=== PATIENT | female | born 1995 | race Caucasian/White ===

== ENCOUNTER 2019-07-27 07:55 | Day surgery (SDC) | payer BC, OTHER ==
[~2019-07-27 07:55] MED LIST: Lactated Ringers 1,000 ML IV SCH
[2019-07-27] MEDS ORDERED: Lidocaine 2% 5 ML SDV ONE (08:50)
--- NOTE | 2019-07-27 09:02 | PCM.PREANE ---
Preanesthetic Assessment - Anesthesia/Transfusion/Family Hx Anesthesia History: Prior Anesthesia Without Reaction Family History of Anesthesia Reaction: No Transfusion History: No Prior Transfusion(s) Intubation History: Unknown - Review of Systems General: No Symptoms Pulmonary: No Symptoms Cardiovascular: No Symptoms Gastrointestinal: No Symptoms Neurological: No Symptoms Other: Reports: None - Physical Assessment Height: 5 ft 8 in Weight: 114.759 kg ASA Class: 2 Mental Status: Alert & Oriented x3 Airway Class: Mallampati = 2 Dentition: Reports: Normal Dentition Thyro-Mental Finger Breadths: 3 Mouth Opening Finger Breadths: 3 ROM/Head Extension: Full Lungs: Clear to Auscultation, Normal Respiratory Effort Cardiovascular: Regular Rate, Regular Rhythm - Lab Values: Laboratory Last Values Urine HCG, Qual NEGATIVE (NEGATIVE) 07/27/19 08:18 - Allergies Allergies/Adverse Reactions: Allergies Allergy/AdvReac Type Severity Reaction Status Date / Time No Known Allergies Allergy Verified 07/26/19 12:33 - Blood Blood Available: No - Anesthesia Plan Pre-Op Medication Ordered: None - Acknowledgements Anesthesia Type Planned: General Anesthesia Pt an Appropriate Candidate for the Planned Anesthesia: Yes Alternatives and Risks of Anesthesia Discussed w Pt/Guardian: Yes Pt/Guardian Understands and Agrees with Anesthesia Plan: Yes PreAnesthesia Questionnaire HEENT History: Reports: None Cardiovascular History: Reports: None Respiratory History: Reports: None Gastrointestinal History: Reports: GERD Genitourinary History: Reports: None 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: Musculoskeletal History: Reports: None Neurological History: Reports: None Psychiatric History: Reports: None Endocrine/Metabolic History: Reports: Obesity/BMI 30+ (BMI 38.5) Hematologic History: Reports: None Immunologic History: Reports: None Oncologic (Cancer) History: Reports: None Dermatologic History: Reports: None - Infectious Disease History Infectious Disease History: Reports: None - Past Surgical History Head Surgeries/Procedures: Reports: None HEENT Surgical History: Reports: Tonsillectomy - SUBSTANCE USE Smoking Status *Q: Current Every Day Smoker (1 ppd) Tobacco Use Within Last Twelve Months: Cigarettes Recreational Drug Use History: No - HOME MEDS Home Medications: Home Meds Clindamycin HCl 150 mg PO ASDIRECTED 07/26/19 [History] Ibuprofen 600 mg PO ASDIRECTED PRN 07/26/19 [History] Sulfamethoxazole/Trimethoprim [Sulfamethoxazole-Tmp Ds Tablet] 1 tab PO ASDIRECTED 07/26/19 [History] - CURRENT (IN HOUSE) MEDS Current Meds: Current Medications Lactated Ringer's (Ringers, Lactated) 1,000 mls @ 125 mls/hr IV ASDIRECTED SP Discontinued Medications Lidocaine (Xylocaine-Mpf 2%) Confirm Administered Dose 5 ml .ROUTE .STK-MED ONE Stop: 07/27/19 08:51
[2019-07-27] MEDS ORDERED: ceFAZolin 1 GM Vial ONE (09:15)
[2019-07-27] MEDS ORDERED: Bupivacaine 0.5% 10 ML SDV ONE (09:16)
[2019-07-27] MEDS ORDERED: Propofol 200 MG/20 ML SDV ONE (10:15)
[2019-07-27] MEDS ORDERED: Midazolam 1 MG/ML 2 ML SDV ONE (10:15)
[2019-07-27] MEDS ORDERED: fentaNYL 100 MCG/2 ML SDV ONE ×2 (10:15→10:50)
[2019-07-27] MEDS ORDERED: Ondansetron 4 MG/2 ML SDV ONE (10:48)
[2019-07-27] MEDS ORDERED: Ketorolac 30 MG/ML SDV ONE (10:48)
[2019-07-27] MEDS ORDERED: traMADol 50 MG Tab PO PRN (11:46)
[2019-07-27 11:48] VITALS: BP 116/69; PULSE 75
--- NOTE | 2019-07-27 11:49 | PCM.OPNOTE ---
- General Post-Op/Procedure Note Date of Surgery/Procedure: 07/27/19 Operative Procedure(s): Incision and drainage right breast abscess Pre Op Diagnosis: Right breast abscess Post-Op Diagnosis: Same Anesthesia Technique: General LMA (ASA II) Primary Surgeon: Rajiv Cristina Fluid Replacement, Intraop: 1,000 EBL in mLs: 10 Condition: Good Free Text/Narrative:: Intake & Output 07/26/19 07/27/19 07/27/19 19:59 03:59 11:59 Intake Total 1500 Balance 1500 DICTATION 994540 CPT CODE 15858
[2019-07-27] MEDS ORDERED: Lactated Ringers 1,000 ML IV SCH (12:00)
--- NOTE | 2019-07-27 12:06 | PCM.POSTAN ---
POST ANESTHESIA ASSESSMENT - MENTAL STATUS Mental Status: Alert, Oriented - VITAL SIGNS Vital Signs: Last Vital Signs Temp 36.8 C 07/27/19 11:43 Pulse 75 07/27/19 11:43 Resp 14 07/27/19 11:43 BP 116/69 07/27/19 11:43 Pulse Ox 98 07/27/19 11:43 - RESPIRATORY Respiratory Status: Respiratory Rate WNL, Airway Patent, O2 Saturation Stable - CARDIOVASCULAR CV Status: Pulse Rate WNL, Blood Pressure Stable - GASTROINTESTINAL GI Status: No Symptoms - PAIN Pain Score: 0 - POST OP HYDRATION Hydration Status: Adequate & Stable - OBSERVATIONS Free Text/Narrative:: No anesthesia problems
--- NOTE | 2019-07-27 12:09 | PCM48HPAN ---
Post Anesthesia Note - EVALUATION WITHIN 48HRS OF ANESTHETIC Vital Signs in Normal Range: Yes Patient Participated in Evaluation: Yes Respiratory Function Stable: Yes Airway Patent: Yes Cardiovascular Function Stable: Yes Hydration Status Stable: Yes Pain Control Satisfactory: Yes Nausea and Vomiting Control Satisfactory: Yes Mental Status Recovered: Yes Vital Signs: Last Vital Signs Temp 36.8 C 07/27/19 11:43 Pulse 75 07/27/19 11:43 Resp 14 07/27/19 11:43 BP 116/69 07/27/19 11:43 Pulse Ox 98 07/27/19 11:43 - COMMENTS/OBSERVATIONS Free Text/Narrative:: No anesthesia problems
--- NOTE | 2019-07-30 11:45 | OR ---
RSURGEON: Rajiv Cristina M.D. DATE OF PROCEDURE: 07/27/2019 OPERATION PERFORMED: Incision and drainage of right breast abscess. PRIMARY SURGEON: Rajiv Cristina MD ANESTHESIA: General LMA. ASA CLASSIFICATION: II. PREOPERATIVE DIAGNOSIS: Right breast abscess. POSTOPERATIVE DIAGNOSIS: Right breast abscess. ESTIMATED BLOOD LOSS: 10 mL. INTRAOPERATIVE FLUID REPLACEMENT: 1000 mL of crystalloid. DESCRIPTION OF PROCEDURE: The patient was taken to the operating room and placed on the operating table in the supine position. Time-out was called for appropriate identification of the patient and procedure. Following satisfactory attainment of general anesthesia and placement of an LMA, the right breast was prepped with DuraPrep solution. Sterile drapes were applied. A skin incision was made directly over the abscess cavity at the 12 o'clock position. The incision was deepened into the abscess cavity and there was approximately 30 to 40 mL of very thick purulent foul- smelling material. Aerobic and anaerobic cultures were obtained. The wound was then copiously irrigated out with a 1% Ancef solution and all fluid was aspirated. Hemostasis was obtained with the use of electrocautery. Once the wound had been irrigated, a 3/4-inch [place] drain was brought to the operating table. This was placed into the defect and secured with interrupted 2-0 nylon sutures. The breast was then dressed with fluffs and an ABD and taped in place with Medipore tape. It should be noted that digital exploration was aggressively carried out and all loculations were broken up prior to irrigating the wound. The patient tolerated the procedure well. Following emergence from anesthesia and extubation, she was taken to recovery room in stable condition. JEF / SUPRIYA /[id number]
== END 2019-07-27 12:20 | disposition home or self-care (01) ==
LOC: MW.SDS 07:55
PROVIDERS: ATTEND Surgery
DX: N61.1 Abscess of the breast and nipple (principal); F17.200 Nicotine dependence, unspecified, uncomplicated
CPT/HCPCS: 19020; 81025; 87070; 87075; 87077; 87186; 87205; J0690; J1885; J2001; J2250; J2405; J2704; J3010; J7120; 00400; 87076; J3490

== ENCOUNTER 2020-03-04 12:28 | Day surgery (SDC) | payer BC, OTHER ==
[~2020-03-04 12:28] MED LIST changes: +Sodium Chloride 0.9% 10 ML SDV IV PRN; +Sodium Chloride 0.9% 10 ML Syringe FLUSH PRN; +Sodium Chloride 0.9% 2.5 ML Syringe FLUSH PRN; +ceFAZolin 2 GM in Premix Bag 1 BAG IV ONE
[2020-03-04] MEDS ORDERED: Bupivacaine 0.5% 30 ML SDV ONE (14:26)
[2020-03-04] MEDS ORDERED: Lidocaine 1% 20 ML MDV ONE (14:27)
[2020-03-04] MEDS ORDERED: Propofol 200 MG/20 ML SDV ONE ×2 (14:48→15:04)
[2020-03-04] MEDS ORDERED: Lidocaine 2% 5 ML SDV ONE ×2 (14:48→15:06)
[2020-03-04] MEDS ORDERED: fentaNYL 250 MCG/5 ML SDV ONE (14:48)
[2020-03-04] MEDS ORDERED: Midazolam 1 MG/ML 2 ML SDV ONE ×3 (14:48→15:58)
[2020-03-04] MEDS ORDERED: Ondansetron 4 MG/2 ML SDV ONE ×2 (14:48→15:06)
--- NOTE | 2020-03-04 14:50 | PCM.PREANE ---
Preanesthetic Assessment - Anesthesia/Transfusion/Family Hx Anesthesia History: Prior Anesthesia Without Reaction Other Type of Anesthesia Reaction Comment: "my mother has a hard time waking up after surgery" Family History of Anesthesia Reaction: No Transfusion History: No Prior Transfusion(s) Intubation History: Unknown - Review of Systems General: No Symptoms Pulmonary: No Symptoms Cardiovascular: No Symptoms Gastrointestinal: No Symptoms Neurological: No Symptoms Other: Reports: None - Physical Assessment NPO Status Date: 03/03/20 Vital Signs: Last Vital Signs Temp 98.6 F 03/04/20 14:35 Pulse 78 03/04/20 14:35 Resp 16 03/04/20 14:35 BP 122/72 03/04/20 14:35 Pulse Ox 98 03/04/20 14:35 Height: 5 ft 7 in Weight: 123.831 kg ASA Class: 2 Mental Status: Alert & Oriented x3 Airway Class: Mallampati = 2 Dentition: Reports: Normal Dentition ROM/Head Extension: Full Lungs: Clear to Auscultation, Normal Respiratory Effort Cardiovascular: Regular Rate, Regular Rhythm - Lab Values: Laboratory Last Values Urine HCG, Qual NEGATIVE (NEGATIVE) 03/04/20 12:47 - Allergies Allergies/Adverse Reactions: Allergies Allergy/AdvReac Type Severity Reaction Status Date / Time No Known Allergies Allergy Verified 03/04/20 14:28 - Blood Blood Available: No - Anesthesia Plan Pre-Op Medication Ordered: None - Acknowledgements Anesthesia Type Planned: General Anesthesia Pt an Appropriate Candidate for the Planned Anesthesia: Yes Alternatives and Risks of Anesthesia Discussed w Pt/Guardian: Yes Pt/Guardian Understands and Agrees with Anesthesia Plan: Yes Additional Comments: pmh: smoker PLAN: ga/lma PreAnesthesia Questionnaire HEENT History: Reports: None Cardiovascular History: Reports: None Respiratory History: Reports: None Gastrointestinal History: Reports: None Genitourinary History: Reports: None 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: Musculoskeletal History: Reports: None Neurological History: Reports: None Psychiatric History: Reports: Anxiety, Depression Endocrine/Metabolic History: Reports: Obesity/BMI 30+ Hematologic History: Reports: None Immunologic History: Reports: None Oncologic (Cancer) History: Reports: None Dermatologic History: Reports: Other (See Below) Other Dermatologic History: chronic draining wound rt breast - Infectious Disease History Infectious Disease History: Reports: None - Past Surgical History Head Surgeries/Procedures: Reports: None HEENT Surgical History: Reports: Tonsillectomy Cardiovascular Surgical History: Reports: None Respiratory Surgical History: Reports: None GI Surgical History: Reports: None Endocrine Surgical History: Reports: None Neurological Surgical History: Reports: None Musculoskeletal Surgical History: Reports: None Oncologic Surgical History: Reports: None Dermatological Surgical History: Reports: Other (See Below) - SUBSTANCE USE Tobacco Use Status *Q: Light Tobacco User Tobacco Use Within Last Twelve Months: Cigarettes - HOME MEDS Home Medications: Home Meds Ibuprofen 600 mg PO ASDIRECTED PRN 07/26/19 [History] - CURRENT (IN HOUSE) MEDS Current Meds: Current Medications Lactated Ringer's (Ringers, Lactated) 1,000 mls @ 125 mls/hr IV ASDIRECTED SP Last Admin: 03/04/20 14:27 Dose: 125 mls/hr Documented by: Sodium Chloride (Saline Flush) 2.5 ml FLUSH ASDIRECTED PRN PRN Reason: Keep Vein Open Sodium Chloride (Normal Saline) 10 ml IV ASDIRECTED PRN PRN Reason: IV Use Sodium Chloride (Saline Flush) 10 ml FLUSH ASDIRECTED PRN PRN Reason: Keep Vein Open Discontinued Medications Bupivacaine HCl (Marcaine 0.5%) Confirm Administered Dose 30 ml .ROUTE .STK-MED ONE Stop: 03/04/20 14:27 Cefazolin Sodium/Dextrose 2 gm (/ Premix) 50 mls @ 100 mls/hr IV ONETIME ONE Stop: 03/03/20 14:27 Lidocaine HCl (Xylocaine 1%) Confirm Administered Dose 20 ml .ROUTE .STK-MED ONE Stop: 03/04/20 14:28
[2020-03-04] MEDS ORDERED: fentaNYL 100 MCG/2 ML SDV ONE ×3 (15:05→17:29)
[2020-03-04] MEDS ORDERED: Glycopyrrolate 0.2 MG/ML SDV ONE ×2 (15:06→15:48)
[2020-03-04] MEDS ORDERED: Ketorolac 30 MG/ML SDV ONE ×2 (15:06→15:48)
[2020-03-04] MEDS ORDERED: ceFAZolin 1 GM Vial ONE (15:12)
[2020-03-04] MEDS ORDERED: Sodium Chloride 0.9% 20 ML ONE (15:12)
[2020-03-04] MEDS ORDERED: Octyl 2-Cyanoacrylate 1 Tube ONE (15:35)
--- NOTE | 2020-03-04 17:03 | PCM.POSTAN ---
POST ANESTHESIA ASSESSMENT - MENTAL STATUS Mental Status: Alert, Oriented - VITAL SIGNS Vital Signs: Last Vital Signs Temp 97.9 F 03/04/20 16:36 Pulse 94 03/04/20 16:55 Resp 13 03/04/20 16:55 BP 118/58 L 03/04/20 16:55 Pulse Ox 97 03/04/20 16:55 - RESPIRATORY Respiratory Status: Respiratory Rate WNL, Airway Patent, O2 Saturation Stable - CARDIOVASCULAR CV Status: Pulse Rate WNL, Blood Pressure Stable - GASTROINTESTINAL GI Status: No Symptoms - POST OP HYDRATION Hydration Status: Adequate & Stable
--- NOTE | 2020-03-04 17:04 | PCM48HPAN ---
Post Anesthesia Note - EVALUATION WITHIN 48HRS OF ANESTHETIC Vital Signs in Normal Range: Yes Patient Participated in Evaluation: Yes Respiratory Function Stable: Yes Airway Patent: Yes Cardiovascular Function Stable: Yes Hydration Status Stable: Yes Pain Control Satisfactory: Yes Nausea and Vomiting Control Satisfactory: Yes Mental Status Recovered: Yes Vital Signs: Last Vital Signs Temp 97.9 F 03/04/20 16:36 Pulse 94 03/04/20 16:55 Resp 13 03/04/20 16:55 BP 118/58 L 03/04/20 16:55 Pulse Ox 97 03/04/20 16:55
--- NOTE | 2020-03-04 17:11 | PCM.OPNOTE ---
- General Post-Op/Procedure Note Date of Surgery/Procedure: 03/04/20 Operative Procedure(s): Excision right breast ductal fistula Findings: 2 ductal fistulas connected to her previous scar. 2.5 x 1.8 x 0.5 cm right breast tissue. 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
[2020-03-04 18:21] VITALS: BP 112/56; PULSE 98
--- NOTE | 2020-03-04 18:53 | OR ---
SURGEON: PIPER ARAGON MD DATE OF PROCEDURE: 03/04/2020 PREOPERATIVE DIAGNOSIS: Right breast periductal fistula. POSTOPERATIVE DIAGNOSIS: Right breast periductal fistula. PROCEDURE PERFORMED: Right breast ductal fistula excision. PRIMARY SURGEON: Piper Aragon MD ANESTHESIA: General LMA. FLUIDS: 900 mL of crystalloid. ESTIMATED BLOOD LOSS: 5 mL. FINDINGS: Two ductal fistulas on the right breast. Breast tissue excised measuring 2.5 cm x 1.8 cm x 0.5 cm. Breast skin/scar excision 8 mm x 10 mm x 2 mm. COMPLICATIONS: None. INDICATIONS: The patient is a 24-year-old female, smoker, who presented last year with a large right-sided breast abscess. This was incised and drained through an incision through the areola. The area has never completely healed. The patient noticed a drainage through both her nipple and two areas along her old scar. She has been on multiple rounds of antibiotics with no improvement. Followup imaging has shown no evidence of a recurrent cyst or abscess. I explained to the patient that she has likely developed a periductal fistula and that this will need to be excised for it to completely go away. The patient and I discussed the procedure; expected perioperative course; and the risks including bleeding, infection, or damage to the nipple itself. She verbalized understanding and wishes to proceed. PROCEDURE IN DETAIL: The patient was brought into the OR and placed on the OR table in supine position. A time-out was completed verifying the patient's name, age, date of , allergies, and procedure to be performed. General LMA anesthesia was induced. The chest was prepped and draped in usual standard fashion. I anesthetized the right breast with 0.5% Marcaine plain. An incision was made along the top areola skin border using a 15 blade. Cautery was used to dissect down to the level of the breast tissue. I then elevated the areola and dissected down toward the nipple, creating a plane between the breast tissue and the nipple itself. As I got toward the nipple, I could see the previous scar tissue. I used the fistula probe and identified the ductal fistula. There were two of these. Using the probe as a guide, I then excised it down to the level of the ducts. Using Metzenbaum scissors, I then excised the breast tissue underneath the nipple including the ducts and fistula tracts. This was sent to pathology, labeled as right breast tissue. It measured 2.5 cm x 1.8 cm x 0.5 cm in size. No margins were associated with this case. I then turned my attention to her previous scar. The scar tissue containing the fistulous opening was then excised using a 15 blade. I made an elliptical incision around these. This tissue was then sent to pathology, labeled as right breast skin excision. This tissue measured 8 mm x 10 mm x 2 mm. Cautery was used to achieve hemostasis. I then closed the excised skin above the nipple using interrupted 3-0 Vicryl suture. I then closed the breast tissue underneath the nipple using layers of interrupted 3-0 Vicryl. I then closed the subcutaneous layer using interrupted 3-0 Vicryl sutures as well. The skin along the areolar skin border was closed using a running 4-0 Monocryl suture. The areolar incision was covered with Dermabond. I covered the superior nipple scar with bacitracin. Sterile dressings were applied. The patient tolerated the procedure well and was extubated and taken to PACU in stable condition. MITRA EPPS /[id number]
== END 2020-03-04 17:34 | disposition home or self-care (01) ==
LOC: MW.SDS 12:28
PROVIDERS: ATTEND Surgery
DX: N60.31 Fibrosclerosis of right breast (principal); N61.0 Mastitis without abscess; F17.200 Nicotine dependence, unspecified, uncomplicated; F41.9 Anxiety disorder, unspecified; F32.9 Major depressive disorder, single episode, unspecified; E66.9 Obesity, unspecified; Z79.899 Other long term (current) drug therapy; Z68.41 Body mass index [BMI] 40.0-44.9, adult
CPT/HCPCS: 19112; 81025; 88305; A9270; J0690; J1885; J2001; J2250; J2405; J2704; J3010; J3490; J7120